=== PATIENT | male | born 1955 ===

== ENCOUNTER 2021-10-30 06:08 | Day surgery (SDC) | payer OTHER | END 2021-10-30 11:30 | disposition home or self-care (01) | LOC: AMB-ENDOS 06:08 | PROVIDERS: ATTEND Colon & Rectal Surgery | DX: D12.2 Benign neoplasm of ascending colon (principal); Z20.822 Contact with and (suspected) exposure to COVID-19; K57.30 Diverticulosis of large intestine without perforation or abscess without bleeding; I10 Essential (primary) hypertension; Z86.010 Personal history of colon polyps; Z85.46 Personal history of malignant neoplasm of prostate ==